=== PATIENT | male | born 1990 | race Caucasian/White ===

== ENCOUNTER 2025-08-15 08:00 | Outpatient (CLI) | payer BC ==
[2025-08-15 13:25] LABS: #Basophils 0.06 10x3/uL (0.0-0.2); #Eosinophils 0.19 10x3/uL (0.0-0.7); #Monocytes 0.66 10x3/uL (0.11-0.59); #Neutrophils 8.66 10x3/uL (1.40-6.50); %Basophils 0.5 % (0.0-1.0); %Eosinophils 1.6 % (0.0-10.0); %Lymphocytes 17.6 % (21.0-51.0); %Monocytes 5.6 % (0.0-10.0); %Neutrophils 73.8 % (42.0-75.0); Hematocrit 48.7 % (42.0-52.0); Hemoglobin 15.8 g/dL (14.0-18.0); Mean Corpuscular Hemoglobin 31.2 pg (27.0-31.0); Mean Corpuscular Volume 96.1 fL (78.0-98.0); Platelet Count 397 10x3/uL (130-400); Red Blood Cell (RBC) Count 5.07 mill/uL (4.70-6.10); White Blood Cell (WBC) Count 11.73 10x3/uL (4.8-10.8)
[2025-08-15 13:39] LABS: INR-International Normal Ratio 0.9; PTT 30.7 sec (22.9-36.1); Prothrombin Time 12.2 sec (12.0-14.7)
[2025-08-15 13:49] LABS: Anion Gap 13 mmol/L (10-20); BUN (Urea Nitrogen) 12 mg/dL (8.9-20.6); Calc. Creatinine Clearance 0 mL/min (70-130); Calcium 9.5 mg/dL (7.8-10.44); Carbon Dioxide 26 mmol/L (22-29); Chloride 103 mmol/L (98-107); Glucose 289 mg/dL (70-105); Potassium 4.3 mmol/L (3.5-5.1); Sodium 138 mmol/L (136-145)
[2025-08-15 14:06] LABS: Bacteria/HPF None Seen HPF (None Seen); Glucose, Urine (Dipstick) Greater than 1000 mg/dL (Negative); Leukocyte 25 Leu/uL (Negative); Protein, Urine (Dipstick) 100 mg/dL (Neg-Trace); RBC/HPF Greater than 50 HPF (0-3); Specific Gravity, Urine 1.024 (1.002-1.036)
== END 2025-08-15 12:59 | disposition home or self-care (01) ==
LOC: LABBT 08:00
PROVIDERS: ATTEND Urology
DX: Z01.818 Encounter for other preprocedural examination (principal); N20.0 Calculus of kidney
CPT/HCPCS: 80048; 81001; 83036; 85025; 85610; 85730; 87086; 93005; 93010

== ENCOUNTER 2025-08-23 06:23 | Day surgery (SDC) | payer BC ==
[2025-08-15 10:55] VITALS: BMI 22.4
[2025-08-23] MEDS ORDERED: LevoFLOXacin D5W 500 mg (100 mL) BAG ONE (06:43)
[2025-08-23] MEDS ORDERED: fentaNYL PF 100 MCG/2 ML SYRINGE ONE (07:22)
[2025-08-23] MEDS ORDERED: Lidocaine 1% PF 5 ML VIAL ONE (07:31)
[2025-08-23] MEDS ORDERED: Glycopyrrolate 0.2 MG/ML 5 ML SYRINGE ONE (07:31)
[2025-08-23] MEDS ORDERED: PROPOFOL 200 MG/20 ML VIAL ONE (07:40)
[2025-08-23] MEDS ORDERED: Ondansetron PF 4 MG/2 ML Vial ONE (08:10)
[2025-08-23] MEDS ORDERED: Famotidine/PF 20 mg/2ml Vial ONE (08:31)
== END 2025-08-23 10:05 | disposition home or self-care (01) ==
LOC: SDC 06:23
PROVIDERS: ATTEND Urology
PROC: 0T778DZ Dilation of Left Ureter with Intraluminal Device, Via Natural or Artificial Opening Endoscopic (ICD-10-PCS; principal; 2025-08-23)
PROC: 0TC78ZZ Extirpation of Matter from Left Ureter, Via Natural or Artificial Opening Endoscopic (ICD-10-PCS; principal; 2025-08-23)
DX: N20.0 Calculus of kidney (principal); E11.9 Type 2 diabetes mellitus without complications
CPT/HCPCS: 36416; 74420; C1758; C1769; C2617; J1100; J1308; J1956; J2250; J2405; J2704; Q9967